=== PATIENT | male | born 1995 | race Caucasian/White ===

== ENCOUNTER 2019-07-05 21:25 | Emergency (ER) | payer BC, OTHER ==
[2019-07-05 23:17] VITALS: RESP 18
--- NOTE | 2019-07-05 23:29 | ED ---
Psych HPI - General Source: patient, family Mode of arrival: ambulatory <Francine Hoffman - Last Filed: 07/06/19 05:00> <Turner Mayorga - Last Filed: 07/11/19 08:34> - General Chief Complaint: Psychiatric Symptoms Stated Complaint: Mental health Time Seen by Provider: 07/05/19 21:41 - History of Present Illness Initial Comments: 23-year-old male patient presents to the emergency department today for psychiatric evaluation. Patient is brought in by his parents for bizarre behavior. Patient states that he feels as though he was living life prior to now in a state of "psychosis". Patient state now he is seeing clearly and getting his life on track and it is freaking out his parents. He states that he has suffered with depression and suicidal ideation over the years, but he is better. He did take adderall for ADHD when he was younger, but no longer requires this. His parents states that over the last week or so he has been exhi biting more bizarre behavior. States last night he saw "spirits in the house, and thought the cat was a demon". Patient believed he was turning into a "warewolf". Mother reports that patient took every dish out of her cupboards and washed them. States that he took all of her houseplants outside, was climbing trees in her yard, and knocked on the neighbor's doors and introduced himself. Patient does admit to doing these things and does not think his behavior seems abnormal. He denies any current suicidal or homicidal ideation. Denies any current physical symptoms or concerns. Denies alcohol use. Does admit to marijuana use but denies any other drug use. (Francine Hoffman) - Related Data Home Medications Medication Instructions Recorded Confirmed No Known Home Medications 06/03/16 07/05/19 Allergies Allergy/AdvReac Type Severity Reaction Status Date / Time amoxicillin Allergy Anaphylaxis Verified 07/05/19 21:44 Penicillins Allergy Anaphylaxis Verified 07/05/19 21:44 Review of Systems ROS Other: All systems not noted in ROS Statement are negative. <Francine Hoffman - Last Filed: 07/06/19 05:00> ROS Other: All systems not noted in ROS Statement are negative. <Turner Mayorga - Last Filed: 07/11/19 08:34> ROS Statement: Those systems with pertinent positive or pertinent negative responses have been documented in the HPI. Past Medical History Past Medical History: No Reported History History of Any Multi-Drug Resistant Organisms: MRSA Date of last positivie culture/infection: 2018 MDRO Source:: right knee Past Surgical History: Hernia Repair Past Psychological History: ADD/ADHD Smoking Status: Never smoker Past Alcohol Use History: None Reported Past Drug Use History: Marijuana <Francine Hoffman - Last Filed: 07/06/19 05:00> General Exam Limitations: no limitations General appearance: alert, in no apparent distress, other (Physical well- developed, well-nourished adult male patient in no acute distress. Vital signs upon presentation are temperature 99.0F, pulse 116, respirations 22, blood pressure 148/88, pulse ox 98% on room air.) Eye exam: Present: normal appearance, PERRL, EOMI. Absent: scleral icterus, conjunctival injection, periorbital swelling ENT exam: Present: normal exam, normal oropharynx, mucous membranes moist Respiratory exam: Present: normal lung sounds bilaterally. Absent: respiratory distress, wheezes, rales, rhonchi, stridor Cardiovascular Exam: Present: regular rate, normal rhythm, normal heart sounds. Absent: systolic murmur, diastolic murmur, rubs, gallop, clicks GI/Abdominal exam: Present: soft, normal bowel sounds. Absent: distended, tenderness, guarding, rebound, rigid Neurological exam: Present: alert, oriented X3, CN II-XII intact Psychiatric exam: Present: anxious, manic. Absent: homicidal ideation, suicidal ideation Skin exam: Present: warm, dry, intact, normal color. Absent: rash <Francine Hoffman M - Last Filed: 07/06/19 05:00> Course Vital Signs 07/05/19 07/05/19 07/06/19 21:32 23:00 05:29 Temperature 99.0 F 98.4 F Pulse Rate 116 H 98 60 Pulse Rate [ Pulse Oximetery ] Respiratory 22 18 18 Rate Blood Pressure 148/88 145/89 114/78 Blood Pressure [Right Arm] O2 Sat by Pulse 98 99 100 Oximetry 07/06/19 08:24 Temperature 98.6 F Pulse Rate Pulse Rate [ 100 Pulse Oximetery ] Respiratory 18 Rate Blood Pressure Blood Pressure 152/100 [Right Arm] O2 Sat by Pulse Oximetry Medical Decision Making - Lab Data Result diagrams: 07/06/19 02:50 07/06/19 02:50 <Francine Hoffman - Last Filed: 07/06/19 05:00> - Lab Data Result diagrams: 07/06/19 02:50 07/06/19 02:50 <Turner Mayorga - Last Filed: 07/11/19 08:34> - Medical Decision Making 23-year-old male patient presents to the emergency department today for psychiatric evaluation. Patient has been exhibiting bizarre behavior. He was seen and evaluated by emergency psychiatric services. This all he would benefit from inpatient admission. He'll be transferred to an appropriate facility. Transfer labs pending. (Francine Hoffman) Patient seen and I did file clinical certificate. (Turner Mayorga) - Lab Data Lab Results 07/05/19 07/05/19 07/06/19 Range/Units 23:12 23:12 02:50 WBC (3.8-10.6) k/uL RBC (4.30-5.90) m/uL Hgb (13.0-17.5) gm/dL Hct (39.0-53.0) % MCV (80.0-100.0) fL MCH (25.0-35.0) pg MCHC (31.0-37.0) g/dL RDW (11.5-15.5) % Plt Count (150-450) k/uL Neutrophils % % Lymphocytes % % Monocytes % % Eosinophils % % Basophils % % Neutrophils # (1.3-7.7) k/uL Lymphocytes # (1.0-4.8) k/uL Monocytes # (0-1.0) k/uL Eosinophils # (0-0.7) k/uL Basophils # (0-0.2) k/uL Sodium 141 (137-145) mmol/L Potassium 4.1 (3.5-5.1) mmol/L Chloride 99 (98-107) mmol/L Carbon Dioxide 32 H (22-30) mmol/L Anion Gap 10 mmol/L BUN 14 (9-20) mg/dL Creatinine 0.91 (0.66-1.25) mg/dL Est GFR (CKD-EPI)AfAm >90 (>60 ml/min/1.73 sqM) Est GFR (CKD-EPI)NonAf >90 (>60 ml/min/1.73 sqM) Glucose 106 H (74-99) mg/dL Calcium 10.5 H (8.4-10.2) mg/dL Urine Color Light Yellow Urine Appearance Clear (Clear) Urine pH 6.5 (5.0-8.0) Ur Specific [place] 1.005 (1.001-1.035) Urine Protein Negative (Negative) Urine Glucose (UA) Negative (Negative) Urine Ketones Trace H (Negative) Urine Blood Negative (Negative) Urine Nitrite Negative (Negative) Urine Bilirubin Negative (Negative) Urine Urobilinogen <2.0 (<2.0) mg/dL Ur Leukocyte Esterase Negative (Negative) Urine Opiates Screen Not Detected (NotDetected) Ur Oxycodone Screen Not Detected (NotDetected) Urine Methadone Screen Not Detected (NotDetected) Ur Propoxyphene Screen Not Detected (NotDetected) Ur Barbiturates Screen Not Detected (NotDetected) U Tricyclic Antidepress Not Detected (NotDetected) Ur Phencyclidine Scrn Not Detected (NotDetected) Ur Amphetamines Screen Not Detected (NotDetected) U Methamphetamines Scrn Not Detected (NotDetected) U Benzodiazepines Scrn Not Detected (NotDetected) Urine Cocaine Screen Not Detected (NotDetected) U Marijuana (THC) Screen Detected H (NotDetected) 07/06/19 Range/Units 02:50 WBC 12.5 H (3.8-10.6) k/uL RBC 5.36 (4.30-5.90) m/uL Hgb 15.7 (13.0-17.5) gm/dL Hct 46.4 (39.0-53.0) % MCV 86.6 (80.0-100.0) fL MCH 29.3 (25.0-35.0) pg MCHC 33.9 (31.0-37.0) g/dL RDW 14.5 (11.5-15.5) % Plt Count 242 (150-450) k/uL Neutrophils % 76 % Lymphocytes % 17 % Monocytes % 5 % Eosinophils % 0 % Basophils % 0 % Neutrophils # 9.5 H (1.3-7.7) k/uL Lymphocytes # 2.2 (1.0-4.8) k/uL Monocytes # 0.6 (0-1.0) k/uL Eosinophils # 0.1 (0-0.7) k/uL Basophils # 0.1 (0-0.2) k/uL Sodium (137-145) mmol/L Potassium (3.5-5.1) mmol/L Chloride (98-107) mmol/L Carbon Dioxide (22-30) mmol/L Anion Gap mmol/L BUN (9-20) mg/dL Creatinine (0.66-1.25) mg/dL Est GFR (CKD-EPI)AfAm (>60 ml/min/1.73 sqM) Est GFR (CKD-EPI)NonAf (>60 ml/min/1.73 sqM) Glucose (74-99) mg/dL Calcium (8.4-10.2) mg/dL Urine Color Urine Appearance (Clear) Urine pH (5.0-8.0) Ur Specific [place] (1.001-1.035) Urine Protein (Negative) Urine Glucose (UA) (Negative) Urine Ketones (Negative) Urine Blood (Negative) Urine Nitrite (Negative) Urine Bilirubin (Negative) Urine Urobilinogen (<2.0) mg/dL Ur Leukocyte Esterase (Negative) Urine Opiates Screen (NotDetected) Ur Oxycodone Screen (NotDetected) Urine Methadone Screen (NotDetected) Ur Propoxyphene Screen (NotDetected) Ur Barbiturates Screen (NotDetected) U Tricyclic Antidepress (NotDetected) Ur Phencyclidine Scrn (NotDetected) Ur Amphetamines Screen (NotDetected) U Methamphetamines Scrn (NotDetected) U Benzodiazepines Scrn (NotDetected) Urine Cocaine Screen (NotDetected) U Marijuana (THC) Screen (NotDetected) Disposition - Out of Hospital Transfer - Req. Specs Out of Hospital Transfer - Requested Specifics: Psychiatric Non-ICU <Francine Hoffman - Last Filed: 07/06/19 05:00> <Turner Mayorga - Last Filed: 07/11/19 08:34> Clinical Impression: Manic episode Disposition: TRANSFER TO PSYCH HOSP/UNIT Condition: Serious Referrals: Gaurang Way MD [Primary Care Provider] - 1-2 days
[2019-07-05 23:42] LABS: Amphetamine Screen,Urine Not Detected (NotDetected); Barbiturate Screen,Urine Not Detected (NotDetected); Benzodiazepines Screen,Urine Not Detected (NotDetected); Cocaine Screen,Urine Not Detected (NotDetected); Methadone Screen, Urine Not Detected (NotDetected); Opiate Screen,Urine Not Detected (NotDetected); Oxycodone Screen, Urine Not Detected (NotDetected); Phencyclidine Screen,Urine Not Detected (NotDetected); Tricyclic Antidepressant,Urine Not Detected (NotDetected); Urn Cannabinoid Scrn Detected (NotDetected)
[2019-07-06 03:03] LABS: Appearance,Urine Clear (Clear); Bilirubin,Urine Negative (Negative); Blood,Urine Negative (Negative); Color,Urine Light Yellow; Glucose,Urine (UA) Negative (Negative); Ketones,Urine Trace (Negative); Leukocyte Esterase,Urine Negative (Negative); Nitrite,Urine Negative (Negative); PH, Urine 6.5 (5.0-8.0); Protein,Urine Negative (Negative); Specific Gravity,Urine 1.005 (1.001-1.035); Urobilinogen,Urine <2.0 mg/dL (<2.0)
[2019-07-06 03:26] LABS: African American GFR (CKD) >90 (>60 ml/min/1.73 sqM); Anion Gap 10 mmol/L; Blood Urea Nitrogen 14 mg/dL (9-20); Calcium 10.5 mg/dL (8.4-10.2); Carbon Dioxide 32 mmol/L (22-30); Chloride 99 mmol/L (98-107); Glucose 106 mg/dL (74-99); Non-African American GFR(CKD) >90 (>60 ml/min/1.73 sqM); Potassium 4.1 mmol/L (3.5-5.1); Sodium 141 mmol/L (137-145)
[2019-07-06 03:34] LABS: Basophils # (A) 0.1 k/uL (0-0.2); Basophils % (A) 0 %; Eosinophils # (A) 0.1 k/uL (0-0.7); Eosinophils % (A) 0 %; HCT 46.4 % (39.0-53.0); HGB 15.7 gm/dL (13.0-17.5); Lymphocytes # (A) 2.2 k/uL (1.0-4.8); Lymphocytes % (A) 17 %; MCH 29.3 pg (25.0-35.0); MCHC 33.9 g/dL (31.0-37.0); MCV 86.6 fL (80.0-100.0); Mean Platelet Volume 7.5; Monocytes # (A) 0.6 k/uL (0-1.0); Monocytes % (A) 5 %; Neutrophils # (A) 9.5 k/uL (1.3-7.7); Neutrophils % (A) 76 %; Platelet Count 242 k/uL (150-450); RBC 5.36 m/uL (4.30-5.90); RDW 14.5 % (11.5-15.5); WBC 12.5 k/uL (3.8-10.6)
[2019-07-06 08:26] VITALS: BP 152/100; PULSE 100; TEMP 98.6
== END 2019-07-06 08:26 ==
LOC: EC 21:25
DX: F30.9 Manic episode, unspecified (principal); F90.9 Attention-deficit hyperactivity disorder, unspecified type; Z79.899 Other long term (current) drug therapy; Z88.0 Allergy status to penicillin
CPT/HCPCS: 36415; 80048; 80306; 81003; 82075; 85025; 99285

== ENCOUNTER 2019-07-22 06:21 | Inpatient (IN) | payer BC, MEDICAID ==
--- NOTE | 2019-07-22 07:12 | ED ---
Psych HPI - General Chief Complaint: Psychiatric Symptoms Stated Complaint: Mental Health Time Seen by Provider: 07/22/19 06:38 Source: patient, family, RN notes reviewed Mode of arrival: ambulatory Limitations: no limitations - History of Present Illness Initial Comments: This a 23-year-old male presents emergency Department with chief complaint of anxiety, psychiatric issues. Patient was recently admitted and discharged for acute psychosis. Patient states that he was started on Abilify symptoms are worsening. Patient states he does not know what is real and take at this time. He denies being suicidal mother states that he's had extreme bizarre behavior which is different than he presented with before. Patient has no physical complaints at this time. Patient states she does have a history of drug abuse but states that he has been sober. Patient did admit to taking next her Abilify this morning because he was so anxious. - Related Data Home Medications Medication Instructions Recorded Confirmed ARIPiprazole [Abilify] 15 mg PO HS 07/22/19 07/22/19 Allergies Allergy/AdvReac Type Severity Reaction Status Date / Time amoxicillin Allergy Anaphylaxis Verified 07/22/19 07:13 Penicillins Allergy Anaphylaxis Verified 07/22/19 07:13 Review of Systems ROS Statement: Those systems with pertinent positive or pertinent negative responses have been documented in the HPI. ROS Other: All systems not noted in ROS Statement are negative. Past Medical History Past Medical History: No Reported History History of Any Multi-Drug Resistant Organisms: MRSA Date of last positivie culture/infection: 2017 MDRO Source:: right knee Past Surgical History: Hernia Repair Past Psychological History: ADD/ADHD Smoking Status: Never smoker Past Alcohol Use History: None Reported Past Drug Use History: Marijuana General Exam Limitations: no limitations General appearance: alert, in no apparent distress Head exam: Present: atraumatic, normocephalic, normal inspection Eye exam: Present: normal appearance, PERRL, EOMI. Absent: scleral icterus, conjunctival injection, periorbital swelling ENT exam: Present: normal exam, normal oropharynx, mucous membranes moist Neck exam: Present: normal inspection, full ROM. Absent: tenderness, meningismus, lymphadenopathy Respiratory exam: Present: normal lung sounds bilaterally. Absent: respiratory distress, wheezes, rales, rhonchi, stridor Cardiovascular Exam: Present: normal rhythm, tachycardia, normal heart sounds. Absent: systolic murmur, diastolic murmur, rubs, gallop, clicks GI/Abdominal exam: Present: soft, normal bowel sounds. Absent: distended, tenderness, guarding, rebound, rigid Neurological exam: Present: alert, oriented X3, CN II-XII intact Psychiatric exam: Present: anxious Skin exam: Present: warm, dry, intact, normal color. Absent: rash Course Vital Signs 07/22/19 06:32 Temperature 97.9 F Pulse Rate 111 H Respiratory 15 Rate Blood Pressure 160/96 O2 Sat by Pulse 99 Oximetry Medical Decision Making - Medical Decision Making 23-year-old male presented for psychiatric evaluation. Patient was evaluated by EPS case discussed with psychiatrist recommends inpatient treatment. - Lab Data Lab Results 07/22/19 Range/Units 07:08 Urine Opiates Screen Not Detected (NotDetected) Ur Oxycodone Screen Not Detected (NotDetected) Urine Methadone Screen Not Detected (NotDetected) Ur Propoxyphene Screen Not Detected (NotDetected) Ur Barbiturates Screen Not Detected (NotDetected) U Tricyclic Antidepress Not Detected (NotDetected) Ur Phencyclidine Scrn Not Detected (NotDetected) Ur Amphetamines Screen Not Detected (NotDetected) U Methamphetamines Scrn Not Detected (NotDetected) U Benzodiazepines Scrn Not Detected (NotDetected) Urine Cocaine Screen Not Detected (NotDetected) U Marijuana (THC) Screen Not Detected (NotDetected) Disposition Clinical Impression: Manic episode, Psychosis Disposition: TRANSFER TO PSYCH HOSP/UNIT Condition: Stable Referrals: Gaurang Way MD [Primary Care Provider] - 1-2 days
[2019-07-22 07:58] LABS: Amphetamine Screen,Urine Not Detected (NotDetected); Barbiturate Screen,Urine Not Detected (NotDetected); Benzodiazepines Screen,Urine Not Detected (NotDetected); Cocaine Screen,Urine Not Detected (NotDetected); Methadone Screen, Urine Not Detected (NotDetected); Opiate Screen,Urine Not Detected (NotDetected); Oxycodone Screen, Urine Not Detected (NotDetected); Phencyclidine Screen,Urine Not Detected (NotDetected); Tricyclic Antidepressant,Urine Not Detected (NotDetected); Urn Cannabinoid Scrn Not Detected (NotDetected)
[2019-07-22] MEDS ORDERED: LORazepam 1 MG TAB PO STA ×2 (10:38→22:29)
[2019-07-22] MEDS ORDERED: ZIPRASIDONE 20 MG VIAL IM PRN (12:50)
[2019-07-22] MEDS ORDERED: ACETAMINOPHEN TAB 325 MG TAB PO PRN (12:50)
[2019-07-22] MEDS ORDERED: MAG HYDROX/AL HYDROX/SIMETH 30 ML CUP PO PRN (12:50)
[2019-07-22] MEDS ORDERED: MAGNESIUM HYDROXIDE 2,400 MG/10 ML CUP PO PRN (12:50)
[2019-07-22 14:17] VITALS: BMI 23.6
[2019-07-22] MEDS: LORazepam 1 MG TAB PO PRN (16:12)
[2019-07-23] MEDS: LORazepam 1 MG TAB PO PRN ×2 (08:13→15:21)
[2019-07-23 09:30] LABS: ALT 46 U/L (21-72); AST 26 U/L (17-59); African American GFR (CKD) >90 (>60 ml/min/1.73 sqM); Albumin 4.5 g/dL (3.5-5.0); Alkaline Phosphatase 49 U/L (38-126); Anion Gap 9 mmol/L; Blood Urea Nitrogen 18 mg/dL (9-20); Calcium 9.9 mg/dL (8.4-10.2); Carbon Dioxide 32 mmol/L (22-30); Chloride 99 mmol/L (98-107); Cholesterol 152 mg/dL (<200); Glucose 75 mg/dL (74-99); HDL Cholesterol 53 mg/dL (40-60); LDL Cholesterol,Calculated 84 mg/dL (0-99); Potassium 4.2 mmol/L (3.5-5.1); Sodium 140 mmol/L (137-145); Total Bilirubin 0.7 mg/dL (0.2-1.3); Total Protein 7.3 g/dL (6.3-8.2); Triglycerides 73 mg/dL (<150)
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
--- NOTE | 2019-07-23 19:57 | P.CONS ---
History of Present Illness - Reason for Consult Consult date: 07/23/19 Medical management Requesting physician: Delmar Kaur - Chief Complaint Restless - History of Present Illness Consultation: This is a 23-year-old patient of Dr. Daily. No history of ADHD. Patient been prescribed Abilify. Has been on it for about 3 [address] Pineda out of the area. Since she's been taking it is progressively feeling restless pacing up and down wandering. Unable to rest unable to sleep well. Appetite is fair. Has no infectious symptoms no respiratory symptoms no urinary symptoms. No weight loss. No fever no chills. He was concerned about stopping the medication has decided to present to the ER. Admitted for the same. Patient does take some marijuana oil. . Review of systems: GEN.: Tired EYES: None HEENT: None NECK: None RESPIRATORY: None CARDIOVASCULAR: None GASTROINTESTINAL: None GENITOURINARY: None MUSCULOSKELETAL: None LYMPHATICS: None HEMATOLOGICAL: None PSYCHIATRY: As above NEUROLOGICAL: None Past medical history: ADHD Social history: lives with his mother. 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 Not working currently. Occasionally takes marijuana oil Family history: Reviewed, noncontributory to presentation Physical examination: VITAL SIGNS: 97.9, 111, 15, 140-82, 99% room air GENERAL: Average built, sitting up, slightly restless. EYES: Pupils equal. Conjunctiva normal. HEENT: External appearance of nose and ears normal, oral cavity grossly normal. NECK: JVD not raised; masses not palpable. HEART: First and second heart sounds are normal; no edema. LUNGS: Respiratory rate normal; clear to auscultation. ABDOMEN: Soft, nontender, liver spleen not palpable, no masses palpable. PSYCH: Alert and oriented x3; mood and affect anxiousl. NEUROLOGICAL: Cranial nerves grossly intact; no facial asymmetry, power and sensation grossly intact. LYMPHATICS: No lymph nodes palpable in the axilla and neck INVESTIGATIONS, reviewed in the clinical context: Potassium 4.2 bun 18 creatinine 0.97 Urine drug screen negative Assessment: -Possible side effect of Abilify manifesting as restless less akathesia -Recreational marijuana use -ADHD Plan: Patient be seen by the psychiatrist. Have to cut back the dose of Abilify or change in medication. Care was discussed with the patient. Patient to follow with this PCP after discharge thank you Past Medical History Past Medical History: No Reported History History of Any Multi-Drug Resistant Organisms: None Reported, MRSA Year Discovered:: 2017 MDRO Source:: right knee Past Surgical History: No Surgical Hx Reported, Hernia Repair Past Psychological History: ADD/ADHD Smoking Status: Former smoker Past Alcohol Use History: None Reported Past Drug Use History: Marijuana Medications and Allergies Home Medications Medication Instructions Recorded Confirmed Type ARIPiprazole [Abilify] 15 mg PO HS 07/22/19 07/22/19 History Allergies Allergy/AdvReac Type Severity Reaction Status Date / Time amoxicillin Allergy Anaphylaxis Verified 07/22/19 14:11 Penicillins Allergy Anaphylaxis Verified 07/22/19 14:11 Physical Exam Vitals: Vital Signs Temp Pulse Pulse Pulse Resp BP BP 07/23/19 06:01 98.0 F 98 14 07/22/19 22:17 131 H 07/22/19 14:12 98.1 F 101 H 16 144/85 07/22/19 13:05 98.1 F 101 H 16 144/85 07/22/19 12:45 97.9 F 99 16 142/82 07/22/19 10:43 99 16 142/82 BP Pulse Ox 07/23/19 06:01 140/77 07/22/19 22:17 150/90 07/22/19 14:12 99 07/22/19 13:05 99 07/22/19 12:45 96 07/22/19 10:43 96 Results CBC & Chem 7: 07/23/19 08:59 Labs: Abnormal Lab Results - Last 24 Hours (Table) 07/23/19 Range/Units 08:59 Carbon Dioxide 32 H (22-30) mmol/L
[2019-07-23] MEDS: ZIPRASIDONE 20 MG CAP PO SCH ×2 (20:27→20:32)
[2019-07-24] MEDS: LORazepam 1 MG TAB PO PRN ×2 (09:08→17:17)
--- NOTE | 2019-07-24 11:04 | P.PN ---
Progress Note - Text Progress Note Date: 07/24/19 Interval history: Patient reports he is having a better day. His pulse had some elevation this morning, relays he thinks it was related to some anxiety. He seems to be tolerating the Geodon well. He says he had good dreams last night. He is not feeling any of the adverse side effects that he reported with Abilify. Mental status exam: He is alert and cooperative with the interview. Speech is fluent, not rapid or pressured. Thought processes organized. His mood seems to be improved. Yesterday he approached me in the [place] and talked about depression, relays his mood is much better today. He does not relate any thoughts of harm to self or others. He does not show any agitation. He does not verbalize any hallucinations. Plan: We'll maintain current dose of Geodon. He wishes to not increase the dosage at this point in time. Monitor for any need for increase in dose. Continue to monitor for any medication side effects and monitor his ongoing response.
[2019-07-24] MEDS: ZIPRASIDONE 20 MG CAP PO SCH (20:49)
[2019-07-25] MEDS: LORazepam 1 MG TAB PO PRN ×2 (10:19→20:30)
[2019-07-25] MEDS: risperiDONE 0.5 MG TAB PO SCH ×2 (14:00→20:30)
--- NOTE | 2019-07-25 14:26 | P.PN ---
Progress Note - Text Progress Note Date: 07/25/19 Interval History: Patient was seen lying down in his room was agreeable to speak to the specifications writer in the office. Patient states that she had a "medication reaction" to his Abilify prior to coming into the hospital and felt that he needed to get evaluated. Patient has superficial insight however is directable and cooperative. Patient states that she may have been smoking/using too much marijuana prior to the initial psychotic break and feels that it contributed to his paranoia and delusions. Patient states that she has stopped using marijuana since then however feels like he has anxiety and "inability to feel my emotions". He states that his mood is "fine" and at this time he denies any symptoms of zeke including increasing goal directed behavior and flight of ideas and does not have pressured speech. He states that he slept fine last night throughout the night and claims that he has fair energy. Patient requested to be off medications for 5 days for a "detox" however patient is directable and agreeable to be started on Risperdal. At this time patient denies any suicidal or homical ideations, intent or plan. Patient denies any auditory, visual hallucinations and denies any paranoia or delusions. Patient denies any side effects from the medications and has been compliant with meds. Mental Status Exam: General Appearance: Patient appears to be stated age is alert, pleasant, and cooperative. Patient has long hair and is wearing street clothes has poor hygiene and grooming. Behavior: Patient is calmly seated without any agitated behavior. Speech: Patient's speech is fluent and nonpressured. Mood/Affect: Mood is "anxious", affect is congruent and constricted. Suicidality/Homicidality: Patient denies having any suicidal or homicidal ideation intent or plan. Perceptions: Patient denies any auditory or visual hallucinations. Though content/process: Patient does endorse that he did have delusions in the past of reincarnation however states that "that may not be true". Memory and concentration: AOX3, grossly intact for the purposes of this session Judgment and insight: Superficial Assessment Psychosis unspecified rule out substance-induced psychosis. Cannabis use disorder Plan: -Patient continues to meet criteria for inpatient psychiatric admission for symptom stabilization and safety. Patient side addled voluntary form along with medication consent which is placed in patient's chart. -Medications: Will discontinue Abilify and [place] at this time and start patient on Risperdal 0.5 mg twice a day for psychosis with a plan to titrate up if needed. -When necessary Ativan for agitation/aggression. -SW on board for discharge planning.
[2019-07-26] MEDS: risperiDONE 0.5 MG TAB PO SCH ×2 (08:22→21:47)
--- NOTE | 2019-07-26 10:22 | P.PN ---
Progress Note - Text Progress Note Date: 07/26/19 Interval History: Patient was seen attending group and was agreeable to speak to the chief underwriter in the office. Patient states that he is feeling much better on the Risperdal compared to the Geodon or Abilify. He thinks chief underwriter for switching amount of this medication and claims that he is now able to feel calm or and think clear. Patient has improved insight however is directable and cooperative. He states that his mood is "better" and at this time he denies any symptoms of zeke including increasing goal directed behavior and flight of ideas and does not have pressured speech. He states that he slept well last night throughout the night and claims that he has fair energy. At this time patient denies any suicidal or homical ideations, intent or plan. Patient denies any auditory, visual hallucinations and denies any paranoia or delusions. Patient denies any side effects from the medications and has been compliant with meds. Mental Status Exam: General Appearance: Patient appears to be stated age is alert, pleasant, and cooperative. Patient has long hair and is wearing street clothes has improved hygiene and grooming. Behavior: Patient is calmly seated without any agitated behavior. Speech: Patient's speech is fluent and nonpressured. Mood/Affect: Mood is "better", affect is congruent Suicidality/Homicidality: Patient denies having any suicidal or homicidal ideation intent or plan. Perceptions: Patient denies any auditory or visual hallucinations. Though content/process: Patient does not endorse any delusions at this time or paranoia. Patient is logical and goal oriented. Memory and concentration: AOX3, grossly intact for the purposes of this session Judgment and insight: Superficial, improved Assessment Psychosis unspecified rule out substance-induced psychosis. Cannabis use disorder Plan: -Patient continues to meet criteria for inpatient psychiatric admission for symptom stabilization and safety. Patient signed adult voluntary form along with medication consent which is placed in patient's chart. -Medications: Will continue on Risperdal 0.5 mg twice a day for psychosis with a plan to titrate up if needed. -When necessary Ativan for agitation/aggression. -SW on board for discharge planning. Asked patient to see if his mother would be able to come in for a visit to assess for baseline and address any concerns or questions she may have and prepare for discharge. Likely discharge before the end of the week.
[2019-07-26] MEDS: LORazepam 1 MG TAB PO PRN (13:56)
[2019-07-27] MEDS: LORazepam 1 MG TAB PO PRN (01:29)
[2019-07-27] MEDS: risperiDONE 0.5 MG TAB PO SCH ×2 (08:13→21:19)
--- NOTE | 2019-07-27 11:58 | P.PN ---
Progress Note - Text Progress Note Date: 07/27/19 Interval History: Patient was seen today and was agreeable to speak to commercial loan underwriter. Patient states that he is feeling "good" on the Risperdal compared to the Geodon or Abilify and thanks commercial loan underwriter for switching him off the medication. Patient did however speak about some mild anxiety which the Risperdal has been helping with however would like to "tough it out" at this time. 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 Patient denies any symptoms of zeke including increasing goal directed behavior and flight of ideas and does not have pressured speech. He states that he slept well last night throughout the night and claims that he has fair energy. At this time patient denies any suicidal or homical ideations, intent or plan. Patient denies any auditory, visual hallucinations and denies any paranoia or delusions. Patient denies any side effects from the medications and has been compliant with meds. Patient did engage with family meeting today to answer questions for treatment with mother. Mental Status Exam: General Appearance: Patient appears to be stated age is alert, pleasant, and cooperative. Patient has long hair and is wearing street clothes has improved hygiene and grooming. Behavior: Patient is calmly seated without any agitated behavior. Speech: Patient's speech is fluent and nonpressured. Mood/Affect: Mood is "good", affect is congruent Suicidality/Homicidality: Patient denies having any suicidal or homicidal ideation intent or plan. Perceptions: Patient denies any auditory or visual hallucinations. Though content/process: Patient does not endorse any delusions at this time or paranoia. Patient is logical and goal oriented. Memory and concentration: AOX3, grossly intact for the purposes of this session Judgment and insight: improved mildly Assessment Psychosis unspecified rule out substance-induced psychosis. Cannabis use disorder Plan: -Patient continues to meet criteria for inpatient psychiatric admission for symptom stabilization and safety. Patient signed adult voluntary form along with medication consent which is placed in patient's chart. -Medications: Will continue on Risperdal 0.5 mg twice a day for psychosis. Instructed patient that he should remain on this dose of the medication for at least 4 months before speaking with his outpatient psychiatrist to titrate off if indicated. -When necessary Ativan for agitation/aggression. -SW on board for discharge planning. Patient engaged with family meeting today and answered questions for mother and patient. Likely discharge tomorrow.
[2019-07-28 07:18] VITALS: TEMP 97.7
[2019-07-28] MEDS: risperiDONE 0.5 MG TAB PO SCH (08:30)
[2019-07-28 08:32] VITALS: BP 131/72; PULSE 100; RESP 18
[2019-07-28] MEDS ORDERED: hydrOXYzine PAMOATE 25 MG CAP PO PRN (11:19)
--- NOTE | 2019-07-28 11:24 | P.DS ---
Providers Date of admission: 07/22/19 12:45 Expected date of discharge: 07/28/19 Attending physician: Delmar Kaur MD Consults: 07/22/19 12:50 Consult Physician Routine Consulting Provider: Camden Damon Consult Reason/Comments: H&P Do you want consulting provider notified?: Yes Primary care physician: Gaurang Way - Discharge Diagnosis(es) (1) Unspecified psychosis Current Visit: Yes Status: Acute Priority: High (2) Anxiety disorder Current Visit: Yes Status: Acute Priority: Medium (3) Cannabis abuse Current Visit: Yes Status: Acute Priority: Medium Hospital Course: Admission HPI: A 23-year-old single male patient. Patient presented to the inpatient psychiatric unit at the [facility] on a voluntary basis with concern of recent psychosis symptoms and describing side effects of current medication. Patient describes that he's had increased restlessness on Abilify and increased anxiety with depression. Says it was difficult to tolerate and had triggered him coming to the hospital. He says he wasn't having thoughts of suicide but didn't feel safe and also felt like he had no emotion. Says is felt better waking up today since he did not receive the Abilify yesterday or today. He does state that he has a lot of anxiety. Says he is on Abilify for 3 weeks area he had a recent hospitalization where he was having thoughts of reincarnation, denies any current thoughts of reincarnation. Says lately he feels like he just wants to lie in bed. He says he has not had any hallucinations during this time of recent psychosis. He does describe when he went to the other hospital his mood was high and he had rapid speech and manic episode was mentioned to him. Hospital course: Upon admission to the unit patient was initially was bizarre and complained of anxiety however patient was directable and agreeable to commence treatment. Patient got along well with other patients on the unit and followed unit protocol. Patient was compliant with the medications and denied any side effects throughout hospital course. Patient was started on Risperdal 0.5 mg twice a day for psychosis. His home medication of Abilify was discontinued as it was felt that it may have been causing side effects which were unpleasant for him including akathisia/anxiety. Patient spoke of his stressors and his anxiety and also engaged in therapy both group and individual. Patient was also seen by medical team for history and physical exam. Throughout the course of the hospitalization patient gradually improved with regards to mood, sleep, anxiety and became future oriented with improved insight and judgment. On the day of discharge patient denied any suicidal or homicidal ideations intent or plan denied any auditory or visual hallucinations. Patient endorsed wanting to live for his health and family and also claimed that she wanted to get his job/career going. The patient denied any access to guns or weapons. Patient denied any paranoia and did not endorse any delusions. Patient does have a significant history of substance abuse and was counseled on abstaining from all substances including alcohol and marijuana. Patient claims that he will stop smoking marijuana on his own and declined any other substance use treatment. Patient was also counseled on the medications and need for regular compliance and was encouraged to follow-up with their outpatient appointment for mental health and also for primary care. Prior to discharge a family meeting was conducted by publications writer with social work case manager, mother and patient to answer any questions and ensure safety upon discharge. Mental status exam: General Appearance: Patient appears to be stated age is alert, pleasant, and cooperative. Patient is in no acute distress and has fair hygiene and grooming Behavior: Patient is calmly seated without any agitated behavior. Speech: Patient's speech is fluent and nonpressured. Mood/Affect: Patient reports their mood is "good", affect is congruent and euthymic. Suicidality/Homicidality: Patient denies having any suicidal or homicidal ideation intent or plan. Perceptions: Patient denies any auditory or visual hallucinations. Though content/process: There is no evidence of any delusional thought content and thought process is linear and goal-directed. Memory and concentration: AOX3, grossly intact for the purposes of this session. Can spell "WORLD" backwards correctly. Judgment and insight: fair, improved Impression: Psychosis unspecified rule out substance-induced psychosis. Anxiety disorder unspecified Cannabis use disorder. Plan: -Continue with discharge today as patient has improved and stabilized psychiatrically and is not currently an imminent threat to himself and/or others. -Continue medications: Patient can continue Risperdal 0.5 mg twice a day for psychosis. Vistaril 25 mg twice a day when necessary for anxiety. Patient was instructed that his Risperdal can be titrated up by his outpatient psychiatrist if needed. -Patient was counseled on the need for medication compliance and appropriate follow-up at mental health and also primary care for medical issues. Patient verbalized understanding and agreed. -Prior to discharge a family meeting was conducted by publications writer with social work case manager, mother and patient to answer any questions and ensure safety upon discharge. Social work also to arrange for patients follow up appointments at [facility] for psychiatric care. -Patient counseled on abstaining from recreational drugs and marijuana and alcohol. Was informed/educated on the adverse effects on their physical and mental health. Patient claimed that he would like to stop/quit substance use on his own. -Patient was instructed to return to the hospital or seek immediate medical care if their psychiatric or medical systems do worsen or reoccur. Allergies Allergy/AdvReac Type Severity Reaction Status Date / Time amoxicillin Allergy Anaphylaxis Verified 07/22/19 14:11 Penicillins Allergy Anaphylaxis Verified 07/22/19 14:11 Laboratory Results Sodium 140 mmol/L (137-145) 07/23/19 08:59 Potassium 4.2 mmol/L (3.5-5.1) 07/23/19 08:59 Chloride 99 mmol/L (98-107) 07/23/19 08:59 Carbon Dioxide 32 mmol/L (22-30) H 07/23/19 08:59 Anion Gap 9 mmol/L 07/23/19 08:59 BUN 18 mg/dL (9-20) 07/23/19 08:59 Creatinine 0.97 mg/dL (0.66-1.25) 07/23/19 08:59 Est GFR (CKD-EPI)AfAm >90 (>60 ml/min/1.73 sqM) 07/23/19 08:59 Est GFR (CKD-EPI)NonAf >90 (>60 ml/min/1.73 sqM) 07/23/19 08:59 Glucose 75 mg/dL (74-99) 07/23/19 08:[address] Glu mg/dL 97 07/23/19 08:59 Hemoglobin A1c 5.0 % (4.0-6.0) 07/23/19 08:59 Calcium 9.9 mg/dL (8.4-10.2) 07/23/19 08:59 Total Bilirubin 0.7 mg/dL (0.2-1.3) 07/23/19 08:59 AST 26 U/L (17-59) 07/23/19 08:59 ALT 46 U/L (21-72) 07/23/19 08:59 Alkaline Phosphatase 49 U/L (38-126) 07/23/19 08:59 Total Protein 7.3 g/dL (6.3-8.2) 07/23/19 08:59 Albumin 4.5 g/dL (3.5-5.0) 07/23/19 08:59 Triglycerides 73 mg/dL (<150) 07/23/19 08:59 Cholesterol 152 mg/dL (<200) 07/23/19 08:59 LDL Cholesterol, Calc 84 mg/dL (0-99) 07/23/19 08:59 HDL Cholesterol 53 mg/dL (40-60) 07/23/19 08:59 TSH 1.140 mIU/L (0.465-4.680) 07/23/19 08:59 Urine Opiates Screen Not Detected (NotDetected) 07/22/19 07:08 Ur Oxycodone Screen Not Detected (NotDetected) 07/22/19 07:08 Urine Methadone Screen Not Detected (NotDetected) 07/22/19 07:08 Ur Propoxyphene Screen Not Detected (NotDetected) 07/22/19 07:08 Ur Barbiturates Screen Not Detected (NotDetected) 07/22/19 07:08 U Tricyclic Antidepress Not Detected (NotDetected) 07/22/19 07:08 Ur Phencyclidine Scrn Not Detected (NotDetected) 07/22/19 07:08 Ur Amphetamines Screen Not Detected (NotDetected) 07/22/19 07:08 U Methamphetamines Scrn Not Detected (NotDetected) 07/22/19 07:08 U Benzodiazepines Scrn Not Detected (NotDetected) 07/22/19 07:08 Urine Cocaine Screen Not Detected (NotDetected) 07/22/19 07:08 U Marijuana (THC) Screen Not Detected (NotDetected) 07/22/19 07:08 Vital Signs Temp 97.7 F 07/28/19 06:43 Pulse 100 07/28/19 08:31 Resp 18 07/28/19 08:31 BP 131/72 07/28/19 08:31 Pulse Ox 99 07/22/19 14:12 Patient Condition at Discharge: Stable Plan - Discharge Summary New Discharge Prescriptions: New risperiDONE [RisperDAL] 0.5 mg PO BID #28 tab hydrOXYzine PAMOATE [Vistaril] 25 mg PO BID PRN #28 cap PRN Reason: Anxiety Discontinued ARIPiprazole [Abilify] 15 mg PO HS Discharge Medication List hydrOXYzine PAMOATE [Vistaril] 25 mg PO BID PRN #28 cap 07/28/19 [Rx] risperiDONE [RisperDAL] 0.5 mg PO BID #28 tab 07/28/19 [Rx] Follow up Appointment(s)/Referral(s): [facility] [Outside] - 08/01/19 11:00 am (Judi Spencer) Gaurang Way MD [Primary Care Provider] - 1-2 days Discharge Disposition: HOME SELF-CARE
== END 2019-07-28 13:39 | disposition home or self-care (01) | DRG 885 ==
LOC: EC 06:21 → 3MHU 12:45
PROVIDERS: ADMIT Psychiatry & Neurology Psychiatry; ATTEND Psychiatry & Neurology Psychiatry
DX: F29 Unspecified psychosis not due to a substance or known physiological condition (principal); G25.71 Drug induced akathisia; F12.10 Cannabis abuse, uncomplicated; F41.9 Anxiety disorder, unspecified; F32.9 Major depressive disorder, single episode, unspecified; F90.9 Attention-deficit hyperactivity disorder, unspecified type; T43.595A Adverse effect of other antipsychotics and neuroleptics, initial encounter; F19.90 Other psychoactive substance use, unspecified, uncomplicated; R45.1 Restlessness and agitation; Z87.820 Personal history of traumatic brain injury; Z87.891 Personal history of nicotine dependence; Z86.14 Personal history of Methicillin resistant Staphylococcus aureus infection; Z79.899 Other long term (current) drug therapy; Z88.0 Allergy status to penicillin
CPT/HCPCS: 80053; 80061; 80306; 82075; 83036; 84443; 99284

== ENCOUNTER 2019-07-30 12:35 | Emergency (ER) | payer BC, OTHER ==
[2019-07-30 12:45] VITALS: TEMP 97.3
--- NOTE | 2019-07-30 13:24 | ED ---
General Adult HPI - General Chief complaint: Psychiatric Symptoms Stated complaint: mental health Time Seen by Provider: 07/30/19 12:56 Source: patient, RN notes reviewed Mode of arrival: ambulatory Limitations: no limitations - History of Present Illness Initial comments: Patient is a pleasant 24-year-old male presenting to the emergency department with depression. Patient was discharged to [facility] [address]. several days ago. Patient did have anxiety and was restless prior to that. Patient feels now that he is Sick. Patient feels he is fatigued and lack of energy. Patient feels depressed. Patient does have suicidal thoughts without plan. No homicidal thoughts. No alcohol or street drug use. Patient questioned at some point if he was having auditory hallucinations however realize it was just his own thoughts. No new physical complaints otherwise. - Related Data Previous Rx's Medication Instructions Recorded hydrOXYzine PAMOATE [Vistaril] 25 mg PO BID PRN #28 cap 07/28/19 risperiDONE [RisperDAL] 0.5 mg PO BID #28 tab 07/28/19 Allergies Allergy/AdvReac Type Severity Reaction Status Date / Time amoxicillin Allergy Anaphylaxis Verified 07/30/19 14:24 Penicillins Allergy Anaphylaxis Verified 07/30/19 14:24 Review of Systems ROS Statement: Those systems with pertinent positive or pertinent negative responses have been documented in the HPI. ROS Other: All systems not noted in ROS Statement are negative. Constitutional: Denies: fever Eyes: Denies: eye pain ENT: Denies: ear pain Respiratory: Denies: cough Cardiovascular: Denies: chest pain Endocrine: Denies: fatigue Gastrointestinal: Denies: abdominal pain Genitourinary: Denies: dysuria Musculoskeletal: Denies: back pain Neurological: Denies: weakness Psychiatric: Reports: depression Past Medical History Past Medical History: No Reported History History of Any Multi-Drug Resistant Organisms: None Reported, MRSA Date of last positivie culture/infection: 2017 MDRO Source:: right knee Past Surgical History: Hernia Repair Past Psychological History: ADD/ADHD Smoking Status: Former smoker Past Alcohol Use History: None Reported Past Drug Use History: None Reported, Marijuana General Exam Limitations: no limitations General appearance: alert, in no apparent distress Head exam: Present: atraumatic Eye exam: Present: normal appearance Neck exam: Present: normal inspection Respiratory exam: Present: normal lung sounds bilaterally Cardiovascular Exam: Present: regular rate, normal rhythm GI/Abdominal exam: Present: soft. Absent: tenderness Extremities exam: Present: normal inspection Neurological exam: Present: alert Psychiatric exam: Present: flat affect Skin exam: Present: normal color Course Vital Signs 07/30/19 12:42 Temperature 97.3 F L Pulse Rate 94 Respiratory 18 Rate Blood Pressure 141/89 O2 Sat by Pulse 99 Oximetry Medical Decision Making - Medical Decision Making Patient was seen by mental health services who has cleared patient for discharge. Patient reevaluated. Mother was upset that headaches have not been addressed. Patient states there have been no recent headaches. Patient has had a few 20 compressions previously. Patient states last one was several months ago. Patient has been admitted previously and has had CAT scans done at that time. Patient does admit note new symptoms. Mother states they have seen their primary care physician regarding this and have an outpatient MRI scheduled. - Lab Data Result diagrams: 07/30/19 13:50 Lab Results 07/30/19 07/30/19 Range/Units 13:50 13:50 Sodium 140 (137-145) mmol/L Potassium 4.2 (3.5-5.1) mmol/L Chloride 103 (98-107) mmol/L Carbon Dioxide 27 (22-30) mmol/L Anion Gap 10 mmol/L BUN 12 (9-20) mg/dL Creatinine 0.69 (0.66-1.25) mg/dL Est GFR (CKD-EPI)AfAm >90 (>60 ml/min/1.73 sqM) Est GFR (CKD-EPI)NonAf >90 (>60 ml/min/1.73 sqM) Glucose 110 H (74-99) mg/dL Calcium 9.8 (8.4-10.2) mg/dL Urine Opiates Screen Not Detected (NotDetected) Ur Oxycodone Screen Not Detected (NotDetected) Urine Methadone Screen Not Detected (NotDetected) Ur Propoxyphene Screen Not Detected (NotDetected) Ur Barbiturates Screen Not Detected (NotDetected) U Tricyclic Antidepress Not Detected (NotDetected) Ur Phencyclidine Scrn Not Detected (NotDetected) Ur Amphetamines Screen Not Detected (NotDetected) U Methamphetamines Scrn Not Detected (NotDetected) U Benzodiazepines Scrn Not Detected (NotDetected) Urine Cocaine Screen Not Detected (NotDetected) U Marijuana (THC) Screen Not Detected (NotDetected) Disposition Clinical Impression: Depression Disposition: HOME SELF-CARE Condition: Stable Instructions (If sedation given, give patient instructions): Depression (ED) Additional Instructions: Please follow-up with mental health services as directed. Please follow-up with primary care physician in the week. MRI is scheduled. Return for worsening symptoms or other concerns. Is patient prescribed a controlled substance at d/c from ED?: No Referrals: Gaurang Way MD [Primary Care Provider] - 1-2 days Time of Disposition: 16:52
[2019-07-30 14:10] LABS: Amphetamine Screen,Urine Not Detected (NotDetected); Barbiturate Screen,Urine Not Detected (NotDetected); Benzodiazepines Screen,Urine Not Detected (NotDetected); Cocaine Screen,Urine Not Detected (NotDetected); Methadone Screen, Urine Not Detected (NotDetected); Opiate Screen,Urine Not Detected (NotDetected); Oxycodone Screen, Urine Not Detected (NotDetected); Phencyclidine Screen,Urine Not Detected (NotDetected); Tricyclic Antidepressant,Urine Not Detected (NotDetected); Urn Cannabinoid Scrn Not Detected (NotDetected)
[2019-07-30 14:13] LABS: African American GFR (CKD) >90 (>60 ml/min/1.73 sqM); Anion Gap 10 mmol/L; Blood Urea Nitrogen 12 mg/dL (9-20); Calcium 9.8 mg/dL (8.4-10.2); Carbon Dioxide 27 mmol/L (22-30); Chloride 103 mmol/L (98-107); Glucose 110 mg/dL (74-99); Non-African American GFR(CKD) >90 (>60 ml/min/1.73 sqM); Potassium 4.2 mmol/L (3.5-5.1); Sodium 140 mmol/L (137-145)
[2019-07-30] MEDS ORDERED: LORazepam 1 MG TAB PO ONE (18:09)
[2019-07-30 18:23] VITALS: BP 121/68; PULSE 88; RESP 16
== END 2019-07-30 18:21 | disposition home or self-care (01) ==
LOC: EC 12:35
DX: F32.9 Major depressive disorder, single episode, unspecified (principal); R45.851 Suicidal ideations; R53.83 Other fatigue; Z87.891 Personal history of nicotine dependence; Z88.0 Allergy status to penicillin; Z86.14 Personal history of Methicillin resistant Staphylococcus aureus infection
CPT/HCPCS: 36415; 80048; 80306; 82075; 99285

== ENCOUNTER → 2019-08-10 | Outpatient (CLI) | payer BC, OTHER ==
--- NOTE | 2019-08-10 13:53 | MR ---
MR brain without contrast HISTORY: Postconcussion syndrome, F07.81 Multiplanar multisequence imaging through the brain Correlation CT brain 08/26/2014 Punctate foci of hyperintensity are present in the periventricular white matter on inversion recovery T2-weighted sequences, approximately 5 lesions are present. No hemorrhage or hydrocephalus. Largest lesion is present on the right on axial image 20 measuring only 3 mm in size. There are normal vascul ar flow voids. There is no restricted diffusion. Cerebellopontine angles, corpus callosum, pituitary, cervical medullary junction are unremarkable. Orbits show symmetric appearance. The sinuses are well aerated. IMPRESSION: Nonspecific foci of demyelination of questionable clinical significance.
== END ==
LOC: RADMRIMAIN 12:52
PROVIDERS: ATTEND Family Medicine
DX: G37.9 Demyelinating disease of central nervous system, unspecified (principal)
CPT/HCPCS: 70551